=== PATIENT | male | born 1970 | race African-American/Black ===

== ENCOUNTER 2017-03-15 10:09 | Emergency (ER) | payer OTHER ==
[~2017-03-15] VITALS: Ht 188 cm; Wt 90.0 kg
[~2017-03-15 10:09] MED LIST: AMLO5TAB4 PO; ATOR10TA65 PO; GLIM2TAB PO
[2017-03-15 10:12] VITALS: Ht 188 cm; Wt 90.0 kg
[2017-03-15] MEDS ORDERED: ONDANSETRON 4 MG INJ IV STA ×2 (10:30→12:20)
[2017-03-15] MEDS ORDERED: SOD CHLORIDE 0.9% 1,000 ML IV STA (10:30)
[2017-03-15] MEDS ORDERED: FAMOTIDINE 20 MG INJ IV STA (10:30)
--- NOTE | 2017-03-15 10:46 | ERD ---
ER Documentation Chief Complaint Date/Time DATE: 03/15/17 TIME: 10:44 Chief Complaint vomiting x 1 week HPI This is a 46-year-old male with a history of [id number]-rgvciegmc diabetes hypertension high cholesterol that presents to the emergency department complaining of abdominal cramping for the past 7 days. The patient indicates he has had multiple episodes of nonbloody nonbilious emesis. The patient states he has been unable to tolerate oral intake as every time he eats he subsequently vomits. He also states he has had loose watery stools since the onset of his symptoms for the past 7 days. He denies any fever shaking or chills. He has had decreased urinary output and increased thirst. He denies any chest pain or pressure that radiates to the neck arm back or jaw. He has no shortness of breath at rest or exertion. He denies any recent hospitalizations or antibiotic use. He denies any recent travel or sick contacts. The patient also states that he drinks alcohol on a daily basis. His last consumption of alcohol was roughly 12 hours prior to arrival. He has never experienced delirium tremors in the past. ROS All systems reviewed and are negative except as per history of present illness. Medications Home Meds Reported Medications Apremilast (Otezla) 1 Each Tab.ds.pk, 1 EACH PO BID 03/15/17 Atorvastatin Calcium (Atorvastatin Calcium) 10 Mg Tablet, 10 MG PO QHS, #30 TAB 03/03/16 Glimepiride* (Glimepiride*) 2 Mg Tablet, 2 MG PO WITH BREAKFAST, TAB 03/03/16 Amlodipine Besylate* (Norvasc*) 5 Mg Tablet, 5 MG PO DAILY, TAB 03/03/16 Allergies Allergies: Coded Allergies: No Known Allergy (Unverified , 03/15/17) PMhx/Soc History of Surgery: Yes (right eye surgery) Anesthesia Reaction: No Hx Neurological Disorder: No Hx Respiratory Disorders: No Hx Cardiac Disorders: Yes (htn, hyperlipidemia) Hx Psychiatric Problems: No Hx Miscellaneous Medical Probl: No Hx Alcohol Use: Yes (per sister) Hx Substance Use: No (per sister) Hx Tobacco Use: Yes (per sister) Physical Exam Vitals Vital Signs Date Time Temp Pulse Resp B/P Pulse Ox O2 Delivery O2 Flow Rate FiO2 03/15/17 10:49 72 17 149/89 100 Room Air 03/15/17 10:12 97.9 98 18 137/90 99 Physical Exam Constitutional:Well-developed. Well-nourished. HEENT:Normocephalic. Atraumatic.Pupils were equal round reactive to light. Dry mucous membranes.No tonsillar exudates. Neck: No nuchal rigidity. No lymphadenopathy. No posterior cervical spine tenderness or step-offs. Respiratory: Not using accessory muscles of respiration.Lungs were clear to auscultation bilaterally. No rhonchi. No rales. No wheezing. Cardiovascular: Regular rate regular rhythm.No murmurs. No rubs were appreciated.S1, S2 normal. Distal pulses are palpable 2+ bilaterally. GI: Abdomen was soft. Left lower quadrant tenderness. Non Distended. No pulsatile abdominal masses or bruits. No rebound. No guarding. Bowel sounds were present and normal. Muscle skeletal: Full range of motion of both the upper and lower extremities bilaterally.Normal muscle tone.No assymetrical calf tenderness or swelling. Skin: No petechia, no purpura. No lesions on the palms or the soles of the feet. No maculopapular rash. Eczema over the abdominal wall NEURO: Patient was alert, awake, orientated x3.No facial droop. Gait observed and normal with no ataxia.Speech had regular rate and rhythm. No focal neurological deficits. Result Diagram: 03/15/17 1030 03/15/17 1030 Results 24 hrs Laboratory Tests Test 03/15/17 10:30 03/15/17 11:11 White Blood Count 6.210^3/ul Red Blood Count 4.6710^6/ul Hemoglobin 14.4g/dl Hematocrit 41.8% Mean Corpuscular Volume 89.5fl Mean Corpuscular Hemoglobin 30.8pg Mean Corpuscular Hemoglobin Concent 34.4g/dl Red Cell Distribution Width 11.9% Platelet Count 68358^3/UL Mean Platelet Volume 9.1fl Neutrophils % 54.4% Lymphocytes % 27.8% Monocytes % 10.4% Eosinophils % 6.3% Basophils % 0.6% Nucleated Red Blood Cells % 0.0/100WBC Neutrophils # 3.410^3/ul Lymphocytes # 1.710^3/ul Monocytes # 0.610^3/ul Eosinophils # 0.410^3/ul Basophils # 0.010^3/ul Nucleated Red Blood Cells # 0.010^3/ul Prothrombin Time 12.7Sec Prothrombin Time Ratio 1.0 INR International Normalized Ratio 0.95 Activated Partial Thromboplast Time 25.6Sec Sodium Level 141mmol/L Potassium Level 4.1mmol/L Chloride Level 96mmol/L Carbon Dioxide Level 26mmol/L Anion Gap 23 Blood Urea Nitrogen 9mg/dl Creatinine 1.23mg/dl Glucose Level 164mg/dl Calcium Level 9.4mg/dl Phosphorus Level 3.7mg/dl Magnesium Level 1.7mg/dl Total Bilirubin 0.5mg/dl Direct Bilirubin 0.00mg/dl Indirect Bilirubin 0.5mg/dl Aspartate Amino Transf (AST/SGOT) 229IU/L Alanine Aminotransferase (ALT/SGPT) 190IU/L Alkaline Phosphatase 144IU/L Troponin I < 0.012ng/ml Total Protein 7.9g/dl Albumin 4.4g/dl Globulin 3.50g/dl Albumin/Globulin Ratio 1.25 Amylase Level 73U/L Lipase 805U/L Urine Color BLANCA Urine Clarity CLOUDY Urine pH 5.0 Urine Specific Beatty 1.030 Urine Ketones TRACEmg/dL Urine Nitrite NEGATIVEmg/dL Urine Bilirubin 2+mg/dL Urine Urobilinogen 2+mg/dL Urine Leukocyte Esterase NEGATIVELeu/ul Urine Microscopic RBC 2/HPF Urine Microscopic WBC 5/HPF Urine Hyaline Casts FEW/HPF Urine Mucus FEW/HPF Urine Hemoglobin NEGATIVEmg/dL Urine Glucose NEGATIVEmg/dL Urine Total Protein 2+mg/dl Current Medications Medications (Trade) Dose Ordered Sig/Ramin Route PRN Reason Start Time Stop Time Status Last Admin Dose Admin Sodium Chloride (NS) 1,000 ml @ 1,000 mls/hr Q1H STAT IV 03/15/17 10:30 03/15/17 11:29 DC 03/15/17 10:40 Ondansetron HCl (Zofran Inj) 4 mg ONCE STAT IV 03/15/17 10:30 03/15/17 10:32 DC 03/15/17 10:39 Famotidine (Pepcid Iv) 20 mg ONCE STAT IV 03/15/17 10:30 03/15/17 10:32 DC 03/15/17 10:39 IV Flush 10 ml 10 ml STK-MED ONCE .ROUTE 03/15/17 11:13 03/15/17 11:14 DC 03/15/17 11:36 Sodium Chloride (NS) 100 ml @ ud STK-MED ONCE .ROUTE 03/15/17 11:13 03/15/17 11:14 DC 03/15/17 11:36 Iodixanol (Visipaque Locm) 100 ml STK-MED ONCE .ROUTE 03/15/17 11:13 03/15/17 11:14 DC 03/15/17 11:36 Procedures/MDM This patient presented to the emergency department with vomiting and mild abdominal pain and was seen and evaluated by myself. My differential diagnosis included but was not limited to abdominal aortic aneurysm, appendicitis, pancreatitis, perforated peptic ulcer, perforated viscus, Boerhaaves syndrome or visceral pain such as diverticulitis, DKA, esophagitis, hepatitis or bowel obstruction. The patient was placed on a laboratory monitor, continuous pulse oximetry, and IV access was established by nursing staff. The patient received IV Pepcid Zofran and a liter bolus of normal saline. 12 Lead EKG tracing ordered and reviewed by myself showed: Normal sinus rhythm of 76 bpm and no arrhythmia. ND interval normal. QRS duration normal. No ST segment elevation No ST segment depression. No changes consistent with acute ischemia. I obtained a 1 view chest radiograph which showed no infiltrates pneumothorax or pleural effusion. I also obtained a CT scan of the abdomen and pelvis with IV contrast. This is read by the radiologist myself and indicated the following: No abdominopelvic mass, lymphadenopathy, or focal acute inflammatory process. Hepatic steatosis with mild hepatomegaly. The patient had mild transaminitis. His lipase was slightly elevated at 850 however the patient's physical exam findings were not suggestive of acute pancreatitis. The patient indicates he is trying to cut down on his alcohol and in the emergency department he was given a banana bag which included folic acid thiamine and a multivitamin. Observation Note: Time: 4 hours Family Hx: No Hypertension Evaluation: Multiple exams showed improving symptoms and no evidence of impending delirium tremors. However during this observation. The patient had mild Essary 6 and was given 1 mg of Ativan intravenously with complete resolution of his symptoms. I indicates that the patient that his symptoms could likely be a viral etiology or adverse effects from the alcohol. The patient stated he felt comfortable being discharged home. There is no evidence of diabetic ketoacidosis. He was sent home with antiemetics given a prescription of Zofran. The patient was discharged home in fair condition. They were instructed to return to the emergency department at any time if there was any worsening of their condition. The patient stated they would follow up with their PCP in the next 24-48 hours to initiate a suitable medication regimen under the care of their PCP as well as to allow their PCP to monitor any drug reactions. The patient was discharged home with prescriptions after they gave informed consent to the new medication. They were also fully informed by myself on the adverse effects and adverse drug interactions in order to provide adequate safeguards to prevent possible adverse reactions to medications. Departure Diagnosis: Primary Impression: Vomiting and diarrhea Additional Impression: Transaminitis Condition: Fair OSCAR CHA Mar 15, 2017 10:46
[2017-03-15 10:56] LABS: BASOPHILS % 0.6 % (0.0-2.0); EOSINOPHILS # 0.4 10^3/ul (0.0-0.5); EOSINOPHILS % 6.3 % (0.0-7.0); HEMATOCRIT 41.8 % (42.0-52.0); HEMOGLOBIN 14.4 g/dl (14.0-18.0); LYMPHOCYTES # 1.7 10^3/ul (0.8-2.9); LYMPHOCYTES % 27.8 % (15.0-51.0); MEAN CORPUSCULAR HEMOGLOBIN 30.8 pg (29.0-33.0); MEAN CORPUSCULAR HGB CONC 34.4 g/dl (32.0-37.0); MEAN CORPUSCULAR VOLUME 89.5 fl (82.0-101.0); MEAN PLATELET VOLUME 9.1 fl (7.4-10.4); MONOCYTE # 0.6 10^3/ul (0.3-0.9); MONOCYTES % 10.4 % (0.0-11.0); NEUTROPHIL # 3.4 10^3/ul (1.6-7.5); NEUTROPHILS % 54.4 % (39.0-77.0); PLATELET COUNT 319 10^3/UL (140-415); RED BLOOD COUNT 4.67 10^6/ul (4.70-6.10); RED CELL DISTRIBUTION WIDTH 11.9 % (11.5-14.5); WHITE BLOOD COUNT 6.2 10^3/ul (4.8-10.8)
[2017-03-15 11:00] LABS: INR 0.95; PARTIAL THROMBOPLASTIN TIME 25.6 Sec (25.0-35.0); PROTIME 12.7 Sec (12.2-14.2)
[2017-03-15 11:02] LABS: ALANINE AMINOTRANSFERASE 190 IU/L (13-69); ALBUMIN 4.4 g/dl (3.3-4.9); ALBUMIN/GLOBULIN RATIO 1.25; ALKALINE PHOSPHATASE 144 IU/L (42-121); AMYLASE 73 U/L (11-123); ANION GAP 23 (8-16); ASPARTATE AMINO TRANSFERASE 229 IU/L (15-46); BILIRUBIN,INDIRECT 0.5 mg/dl (0-1.1); BILIRUBIN,TOTAL 0.5 mg/dl (0.2-1.3); BLOOD UREA NITROGEN 9 mg/dl (7-20); CALCIUM 9.4 mg/dl (8.4-10.2); CARBON DIOXIDE 26 mmol/L (21-31); CHLORIDE 96 mmol/L (97-110); CREATININE 1.23 mg/dl (0.61-1.24); GLUCOSE 164 mg/dl (70-220); POTASSIUM 4.1 mmol/L (3.5-5.1); SODIUM 141 mmol/L (135-144); TOTAL PROTEIN 7.9 g/dl (6.1-8.1)
[2017-03-15] MEDS ORDERED: APRE1TAB2 PO (11:10)
[2017-03-15] MEDS ORDERED: IODIXANOL LOCM 100 ML BTL ONE (11:13)
[2017-03-15] MEDS ORDERED: SOD CHLORIDE 0.9% 100 ML ONE (11:13)
--- NOTE | 2017-03-15 11:16 | RADRPT ---
PROCEDURE: XR Chest. CLINICAL INDICATION: chest pain TECHNIQUE: Single frontal view of the chest was obtained COMPARISON: 03/03/2016 FINDINGS: The heart and mediastinum are within normal limits. The lungs are clear. There is no pleural effusion or pneumothorax. RPTAT: AA IMPRESSION: No acute disease. .Greg León MD, MD Date Time Electronically viewed and signed by .Greg León MD, MD on 03/15/2017 11:16 .S/
[2017-03-15 11:18] LABS: TROPONIN-I < 0.012 ng/ml (0.00-0.12)
--- NOTE | 2017-03-15 11:37 | RADRPT ---
PROCEDURE: CT Abdomen and Pelvis with contrast. CLINICAL INDICATION: Abdominal pain. TECHNIQUE: Routine abdominopelvic CT was performed following administration of intravenous contras t and reformatted in the axial, coronal, sagittal planes. Intravenous contrast: 80 cc of Optiray 320. Radiation dose: CTDIvol (mGy) = 8.7; total DLP (mGy-cm) = 504. One or more of the following radiation dose techniques were used: -Automated exposure control. -Adjust of the mA and/or kV according to patient size. -Use of iterative reconstruction technique. COMPARISON: None. FINDINGS: There is mild hepatomegaly with liver measuring up to 19.3 cm. There is diffuse low attenuation of the liver parenchyma, consistent with steatotic change. Pancreas, adrenal glands, spleen are within normal limits. Kidneys demonstrate symmetric enhancement without hydronephrosis or nephrolithiasis. There is no abnormal bowel wall thickening or dilatation. The appendix is within normal limits. No mesenteric or retroperitoneal lymphadenopathy. Trace aortic calcifications without aneurysm. There are multiple small mildly prominent bilateral inguinal lymph nodes that are likely reactive. No free fluid or fluid collection. No lymphadenopathy. IMPRESSION: No abdominopelvic mass, lymphadenopathy, or focal acute inflammatory process. Hepatic steatosis with mild hepatomegaly. RPTAT: EE .Reese Hansen MD, Date Time Electronically viewed and signed by .Reese Hansen MD, on 03/15/2017 11:42 .C/
[2017-03-15 11:53] LABS: MAGNESIUM 1.7 mg/dl (1.7-2.5); PHOSPHORUS 3.7 mg/dl (2.5-4.9)
[2017-03-15 12:17] LABS: ADD UMIC YES; UR ASCORBIC ACID NEGATIVE (NEGATIVE); UR BILIRUBIN (Dip) 2+ mg/dL (NEGATIVE); UR BLOOD (Dip) NEGATIVE (NEGATIVE); UR CLARITY CLOUDY (CLEAR); UR COLOR AMBER (YELLOW); UR GLUCOSE (Dip) NEGATIVE (NEGATIVE); UR KETONES (Dip) TRACE mg/dL (NEGATIVE); UR LEUKOCYTE ESTERASE (Dip) NEGATIVE Leu/ul (NEGATIVE); UR MUCUS FEW /HPF (NONE SEEN); UR NITRITE (Dip) NEGATIVE (NEGATIVE); UR RBC 2 /HPF (0-5); UR TOTAL PROTEIN (Dip) 2+ mg/dl (NEGATIVE); UR UROBILINOGEN (Dip) 2+ mg/dL (NEGATIVE)
[2017-03-15] MEDS ORDERED: LORAZEPAM 2 MG INJ IV STA (12:20)
[2017-03-15] MEDS ORDERED: MAGNESIUM SULFATE 2 GM, MULTIVITAMINS 10 ML, THIAMINE 100 MG, FOLIC ACID 1 MG in SOD CH... IV STA (12:20)
[2017-03-15] MEDS ORDERED: ONDA4TAB14 PO (12:25)
[2017-03-15 16:00] VITALS: BP 146/88; PULSE 87; RESP 18; TEMP 98
== END 2017-03-15 16:01 | disposition home or self-care (01) ==
LOC: E/R 10:09
DX: R11.10 Vomiting, unspecified (principal); R19.7 Diarrhea, unspecified; R74.0 Nonspecific elevation of levels of transaminase and lactic acid dehydrogenase [LDH]; I10 Essential (primary) hypertension; E11.9 Type 2 diabetes mellitus without complications; R07.9 Chest pain, unspecified; Z79.84 Long term (current) use of oral hypoglycemic drugs
CPT/HCPCS: 71010; 74177; 80053; 81001; 82150; 83690; 83735; 84100; 84484; 85025; 85610; 85730; 87086; 93005; 96374; 96375; 96376; 99285; J2060; J2405; J3411; J3475; J7030; Q9967

== ENCOUNTER 2017-06-29 15:13 | Emergency (ER) | payer OTHER ==
[~2017-06-29] VITALS: Ht 185.4 cm; Wt 77.0 kg
[~2017-06-29 15:13] MED LIST changes: +APRE1TAB2 PO; +ONDA4TAB14 PO
[2017-06-29] MEDS ORDERED: SOD CHLORIDE 0.9% 1,000 ML IV STA (15:24)
[2017-06-29] MEDS ORDERED: ONDANSETRON 4 MG INJ IV STA (15:24)
[2017-06-29 16:06] VITALS: Ht 185.4 cm; Wt 77.0 kg
--- NOTE | 2017-06-29 16:18 | RADRPT ---
PROCEDURE: XR Chest. CLINICAL INDICATION: Weakness TECHNIQUE: Single AP view of the chest was obtained COMPARISON: 03/03/2016 FINDINGS: The heart, lungs and osseous structures are unremarkable. . RPTAT: KK IMPRESSION: No acute disease. Zhou Sanchez Physician Date Time Electronically viewed and signed by Zhou Sanchez, Physician on 06/29/2017 16:17 HI/
[2017-06-29 16:42] LABS: BASOPHILS % 0.7 % (0.0-2.0); EOSINOPHILS # 0.4 10^3/ul (0.0-0.5); EOSINOPHILS % 9.2 % (0.0-7.0); HEMATOCRIT 47.6 % (42.0-52.0); HEMOGLOBIN 16.3 g/dl (14.0-18.0); LYMPHOCYTES # 1.5 10^3/ul (0.8-2.9); LYMPHOCYTES % 34.5 % (15.0-51.0); MEAN CORPUSCULAR HEMOGLOBIN 32.8 pg (29.0-33.0); MEAN CORPUSCULAR HGB CONC 34.2 g/dl (32.0-37.0); MEAN CORPUSCULAR VOLUME 95.8 fl (82.0-101.0); MEAN PLATELET VOLUME 10.1 fl (7.4-10.4); MONOCYTE # 0.4 10^3/ul (0.3-0.9); NEUTROPHILS % 46.1 % (39.0-77.0); PLATELET COUNT 220 10^3/UL (140-415); RED BLOOD COUNT 4.97 10^6/ul (4.70-6.10); RED CELL DISTRIBUTION WIDTH 15.4 % (11.5-14.5); WHITE BLOOD COUNT 4.4 10^3/ul (4.8-10.8)
[2017-06-29] MEDS ORDERED: METHYLPREDNISOLONE 125 MG INJ IV ONE (17:00)
[2017-06-29 17:01] LABS: ALANINE AMINOTRANSFERASE 213 IU/L (13-69); ALBUMIN 3.8 g/dl (3.3-4.9); ALBUMIN/GLOBULIN RATIO 1.05; ALKALINE PHOSPHATASE 281 IU/L (42-121); ANION GAP 19 (8-16); ASPARTATE AMINO TRANSFERASE 289 IU/L (15-46); BILIRUBIN,INDIRECT 0.5 mg/dl (0-1.1); BILIRUBIN,TOTAL 0.5 mg/dl (0.2-1.3); BLOOD UREA NITROGEN 3 mg/dl (7-20); CALCIUM 8.7 mg/dl (8.4-10.2); CARBON DIOXIDE 28 mmol/L (21-31); CHLORIDE 104 mmol/L (97-110); CREATININE 0.95 mg/dl (0.61-1.24); GLUCOSE 119 mg/dl (70-220); SODIUM 147 mmol/L (135-144); TOTAL PROTEIN 7.4 g/dl (6.1-8.1)
[2017-06-29 17:16] LABS: ADD UMIC YES; UR ASCORBIC ACID NEGATIVE (NEGATIVE); UR BILIRUBIN (Dip) 2+ mg/dL (NEGATIVE); UR BLOOD (Dip) NEGATIVE (NEGATIVE); UR CLARITY CLEAR (CLEAR); UR COLOR AMBER (YELLOW); UR GLUCOSE (Dip) NEGATIVE (NEGATIVE); UR KETONES (Dip) NEGATIVE (NEGATIVE); UR LEUKOCYTE ESTERASE (Dip) NEGATIVE Leu/ul (NEGATIVE); UR MUCUS MANY /HPF (NONE SEEN); UR NITRITE (Dip) NEGATIVE (NEGATIVE); UR RBC 2 /HPF (0-5); UR SPECIFIC GRAVITY (Dip) 1.025 (1.003-1.030); UR TOTAL PROTEIN (Dip) 1+ mg/dl (NEGATIVE); UR UROBILINOGEN (Dip) 2+ mg/dL (NEGATIVE)
[2017-06-29 17:17] LABS: TROPONIN-I < 0.012 ng/ml (0.00-0.12)
[2017-06-29] MEDS ORDERED: DIPHENHYDRAMINE 50 MG INJ ONE (17:48)
--- NOTE | 2017-06-29 17:58 | ERD ---
ER Documentation Chief Complaint Chief Complaint EXZEMA WITH EXTREME ITCHING. TAKEN OF MED TO TREAT. WEAKNESS AND ETOH HPI Patient is a 47-year-old male with hypertension and diabetes who presents with dehydration. He also points of weakness. He says that he is having trouble swallowing. He was brought in by ambulance. His sugar was 151. Heart rate was a bit tachycardic at 115 by paramedics. He says "I felt overall weak and could not get out of the tub". He said that he has had decreased intake by mouth recently because of his difficulty swallowing and that he has lost 60 pounds since March. He said that he feels mucus in his chest. He denies fevers or pain. He does have nausea and vomiting. Upon review of old medical records this is the patient's seventh visit to the ER since 2013. ROS All systems reviewed and are negative except as per history of present illness. Medications Home Meds Active Scripts Ondansetron (Ondansetron Odt) 4 Mg Tab.rapdis, 4 MG PO Q6H Y for NAUSEA AND/OR VOMITING, #20 TAB Prov:OSCAR CHA 03/15/17 Reported Medications Apremilast (Otezla) 1 Each Tab.ds.pk, 1 EACH PO BID 03/15/17 Atorvastatin Calcium (Atorvastatin Calcium) 10 Mg Tablet, 10 MG PO QHS, #30 TAB 03/03/16 Glimepiride* (Glimepiride*) 2 Mg Tablet, 2 MG PO WITH BREAKFAST, TAB 03/03/16 Amlodipine Besylate* (Norvasc*) 5 Mg Tablet, 5 MG PO DAILY, TAB 03/03/16 Allergies Allergies: Coded Allergies: No Known Allergy (Unverified , 03/15/17) PMhx/Soc History of Surgery: Yes (right eye surgery) Anesthesia Reaction: No Hx Neurological Disorder: No Hx Respiratory Disorders: No Hx Cardiac Disorders: Yes (htn, hyperlipidemia) Hx Psychiatric Problems: No (ETOH ABUSE) Hx Miscellaneous Medical Probl: Yes (DM, EXZEMA) Hx Alcohol Use: Yes (1P[place]/DAILY) Hx Substance Use: Yes (mARIJUANA ) Hx Tobacco Use: Yes (per sister) Smoking Status: Current every day smoker FmHx Family History: diabetes Physical Exam Vitals Vital Signs Date Time Temp Pulse Resp B/P Pulse Ox O2 Delivery O2 Flow Rate FiO2 11/13/17 18:07 98.2 96 16 143/84 100 Room Air 06/29/17 16:06 98.2 92 16 146/82 100 Physical Exam Const: Moderate distress Head: Atraumatic Eyes: Normal Conjunctiva ENT: Normal External Ears, Nose and Mouth. Neck: Full range of motion..~ No meningismus. Resp: Clear to auscultation bilaterally Cardio: Regular rate and rhythm, no murmurs Abd: Soft, non tender, non distended. Normal bowel sounds Skin: Diffuse eczema Back: No midline or flank tenderness Ext: No cyanosis, or edema Neur: Awake and alert Psych: Normal Mood and Affect Result Diagram: 06/29/17 1615 06/29/17 1615 Results 24 hrs Laboratory Tests Test 06/29/17 16:15 06/29/17 17:00 White Blood Count 4.410^3/ul Red Blood Count 4.9710^6/ul Hemoglobin 16.3g/dl Hematocrit 47.6% Mean Corpuscular Volume 95.8fl Mean Corpuscular Hemoglobin 32.8pg Mean Corpuscular Hemoglobin Concent 34.2g/dl Red Cell Distribution Width 15.4% Platelet Count 43521^3/UL Mean Platelet Volume 10.1fl Neutrophils % 46.1% Lymphocytes % 34.5% Monocytes % 9.0% Eosinophils % 9.2% Basophils % 0.7% Nucleated Red Blood Cells % 0.0/100WBC Neutrophils # 2.010^3/ul Lymphocytes # 1.510^3/ul Monocytes # 0.410^3/ul Eosinophils # 0.410^3/ul Basophils # 0.010^3/ul Nucleated Red Blood Cells # 0.010^3/ul Sodium Level 147mmol/L Potassium Level 4.0mmol/L Chloride Level 104mmol/L Carbon Dioxide Level 28mmol/L Anion Gap 19 Blood Urea Nitrogen 3mg/dl Creatinine 0.95mg/dl Glucose Level 119mg/dl Calcium Level 8.7mg/dl Total Bilirubin 0.5mg/dl Direct Bilirubin 0.00mg/dl Indirect Bilirubin 0.5mg/dl Aspartate Amino Transf (AST/SGOT) 289IU/L Alanine Aminotransferase (ALT/SGPT) 213IU/L Alkaline Phosphatase 281IU/L Troponin I < 0.012ng/ml Total Protein 7.4g/dl Albumin 3.8g/dl Globulin 3.60g/dl Albumin/Globulin Ratio 1.05 Lipase 70U/L Ethyl Alcohol Level 72.0mg/dl Urine Color BLANCA Urine Clarity CLEAR Urine pH 5.0 Urine Specific Terry 1.025 Urine Ketones NEGATIVEmg/dL Urine Nitrite NEGATIVEmg/dL Urine Bilirubin 2+mg/dL Urine Urobilinogen 2+mg/dL Urine Leukocyte Esterase NEGATIVELeu/ul Urine Microscopic RBC 2/HPF Urine Microscopic WBC 2/HPF Urine Hyaline Casts FEW/HPF Urine Mucus MANY/HPF Urine Hemoglobin NEGATIVEmg/dL Urine Glucose NEGATIVEmg/dL Urine Total Protein 1+mg/dl Current Medications Medications (Trade) Dose Ordered Sig/Ramin Route PRN Reason Start Time Stop Time Status Last Admin Dose Admin Sodium Chloride (NS) 1,000 ml @ 1,000 mls/hr Q1H STAT IV 06/29/17 15:24 06/29/17 16:23 DC 06/29/17 16:16 Ondansetron HCl (Zofran Inj) 4 mg ONCE STAT IV 06/29/17 15:24 06/29/17 15:25 DC 06/29/17 16:16 Methylprednisolone Sodium Succinate (Solu-Medrol) 125 mg ONCE ONCE IV 06/29/17 17:00 06/29/17 17:01 DC 06/29/17 17:27 Diphenhydramine HCl (Benadryl) 50 mg ONCE ONCE IV 06/29/17 18:00 06/29/17 18:01 DC 06/29/17 17:51 Diphenhydramine HCl (Benadryl) 50 mg STK-MED ONCE .ROUTE 06/29/17 17:48 06/29/17 17:49 DC Procedures/MDM EKG read by me: Rate/Rhythm: First-degree AV block at a rate of 96 Intervals: Prolonged [place] interval Impression: First-degree AV block without ischemia Chest x-ray negative per radiology. Smoking Cessation Therapy: Pt. was lectured for greater than 3 minutes on the health risks of continued smoking and the benefits of cessation. Patient is a 47-year-old male with hypertension and diabetes who presents with dehydration and eczema. He had a full workup which showed basically normal laboratory studies. I do not believe he requires further workup at this point or admission to the hospital. He was given 1 L of normal saline for fluid bolus and was also given Solu-Medrol and Benadryl which he was requesting for his eczema. He can return for any worsening symptoms. The patient will likely benefit from outpatient follow-up with his primary doctor as well as GI consultation for possible endoscopy. Departure Diagnosis: Primary Impression: Weakness Additional Impressions: Eczema Eczema type: unspecified Qualified Code: L30.9 - Eczema, unspecified type Itching Condition: Fair Patient Instructions: Weakness, Unk Cause Additional Instructions: Call your primary care doctor TOMORROW for an appointment during the next 1-2 days.See the doctor sooner or return here if your condition worsens before your appointment time. BIANCA SANTOYO MD Jun 29, 2017 17:58
[2017-06-29] MEDS ORDERED: DIPHENHYDRAMINE 50 MG INJ IV ONE (18:00)
[2017-06-29 18:07] VITALS: BP 143/84; PULSE 96; RESP 16; TEMP 98.2
== END 2017-06-29 18:08 | disposition home or self-care (01) ==
LOC: E/R 15:13
DX: R53.1 Weakness (principal); I10 Essential (primary) hypertension; E11.9 Type 2 diabetes mellitus without complications; F17.210 Nicotine dependence, cigarettes, uncomplicated
CPT/HCPCS: 36415; 71010; 80053; 80306; 81001; 83690; 84484; 85025; 93005; 96374; 96375; 99285; J1200; J2405; J2930; J7030

== ENCOUNTER 2017-09-14 17:56 | Inpatient (IN) | END 2017-09-20 21:31 | disposition EXP | DRG 917 ==